=== PATIENT | female | born 1995 | race Caucasian/White ===

== ENCOUNTER 2017-09-09 16:17 | Emergency (ER) | payer BC ==
[~2017-09-09] VITALS: Ht 177.8 cm; Wt 65.8 kg
[2017-09-09 16:53] VITALS: BP 133/84
[2017-09-09 17:16] LABS: URINE BILIRUBIN NEGATIVE (Negative); URINE BLOOD 3+ (Negative); URINE CLARITY CLOUDY; URINE COLOR YELLOW; URINE GLUCOSE-RANDOM NEGATIVE (Negative); URINE KETONES NEGATIVE (Negative); URINE LEUKOCYTES NEGATIVE (Negative); URINE NITRITE NEGATIVE (Negative); URINE PROTEIN 2+ (Negative); URINE UROBILINOGEN 0.2 E.U./dl (0.2-1.0)
[2017-09-09 17:44] LABS: CASTS None Seen /LPF (None Seen); CRYSTALS None Seen /LPF (None Seen); MUCUS >6 Heavy strn/LPF (None Seen); SQUAMOUS >10 Many /LPF (0-3); URINE WBC 0-5 Rare /HPF (0-5)
== END 2017-09-09 17:51 | disposition home or self-care (01) ==
LOC: M.ERS 16:17
PROVIDERS: Physician Assistant
DX: N76.0 Acute vaginitis (principal)

== ENCOUNTER 2020-02-05 17:15 | Emergency (ER) | payer OTHER, BC ==
[~2020-02-05] VITALS: Ht 165.1 cm; Wt 70.3 kg
[2020-02-05] MEDS ORDERED: WELLBUTRIN SR150 MG PO (17:25)
[2020-02-05] MEDS ORDERED: XANAX 0.5 MG0.5 M1 PO (17:25)
[2020-02-05] MEDS ORDERED: NORCO 5-325 TA1 EAC2 PO (18:22)
[2020-02-05] MEDS ORDERED: IBUPROFEN 800800 M1 PO (18:22)
[2020-02-05] MEDS ORDERED: AMOXICILLIN 50500 MG PO (18:25)
[2020-02-05 18:31] VITALS: BP 125/89
== END 2020-02-05 18:32 | disposition home or self-care (01) ==
LOC: M.ERS 17:15
DX: S02.40DA Maxillary fracture, left side, initial encounter for closed fracture (principal); X58.XXXA Exposure to other specified factors, initial encounter; Y93.89 Activity, other specified; Y92.89 Other specified places as the place of occurrence of the external cause; Y99.8 Other external cause status